=== PATIENT | female | born 1970 | race Caucasian/White ===

== ENCOUNTER → 2016-11-21 | Day surgery (SDC) | payer BC ==
[2016-11-10 09:31] VITALS: BMI 26.0
[~2016-11-21] VITALS: Ht 182.9 cm; Wt 86.4 kg
[~2016-11-21] MED LIST: BUSP-8 PO; CLB100 PO; CPR500 PO; GABA-112 PO; LIDOCAINE HCL 2% 2 ML VIAL (20MG/ML) ONE; METR-163 PO; PRLSR20 PO; PROPOFOL IV EMULSION 10 MG/ML 20 ML VIAL IV ONE; SERT-234 PO; SODIUM CHLORIDE 0.9% 500ML 500 ML IV ONE; TOPI50TA16 PO
[2016-11-21 11:54] VITALS: Ht 182.9 cm; Wt 86.4 kg
[2016-11-21 12:02] VITALS: TEMP 36.6
--- NOTE | 2016-11-21 12:17 | Endo History and Physical ---
History & Physical Date of Service: Nov 21, 2016. Chief Complaint: anal pain, fistula Referring Physician: Dr. 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 Past Surgical History Hx Cardiac Surgery: No Hx Internal Defibrillator: No Hx Pacemaker: No Hx Abdominal Surgery: No Hx of Implantable Prosthesis: No Hx Post-Op Nausea and Vomiting: Yes (NAUSEA AND VOMITING WITH GENERAL ANESTHESIA. ) Hx Cancer Surgery: No Hx Thoracic Surgery: No Hx Orthopedic: Yes (LEFT ACL REPAIR X 2, THUMB SPLINTER REMOVAL) Hx Urinary Tract Surgery: No Family History None Social History Smoking Status: Never Smoker Hx Substance Use: No Hx Alcohol Use: Yes (OCCASSIONALLY (NOT LATELY D/T ABD PAIN)) Allergies Coded Allergies: NO KNOWN DRUG ALLERGIES (Verified Allergy, Unknown, ., 11/21/16) Dairy (Verified Adverse Reaction, Intermediate, GI SYMPTOMS, 11/21/16) Current Medications Reported Home Medications Medications Dose Route/Sig Max Daily Dose Days Date Category Buspirone Hcl 10 Mg Tab 20 Mg PO 11/21/16 Reported Celebrex (Celecoxib) 100 Mg Cap 1 Cap PO QAM 30 11/10/16 Reported Neurontin (Gabapentin) 100 Mg Cap 200 Mg PO BID 11/10/16 Reported Topamax (Topiramate) 50 Mg Tab 50 Mg PO BID 11/10/16 Reported Prilosec (Omeprazole) 20 Mg Capcr 20 Mg PO QAM 05/24/13 Reported Zoloft (Sertraline HCl) 100 Mg Tab 1.5 Tab PO QPM 05/24/13 Reported Vital Signs Weight (Kilograms): 86.36 Height (Feet): 6 Height (Inches): 0 Date Time Temp Pulse Resp B/P Pulse Ox O2 Delivery O2 Flow Rate FiO2 11/21/16 12:02 36.6 56 20 128/65 100 Room Air Physical Exam General Appearance: WD/WN, no apparent distress Respiratory/Chest: Auscultation: breath sounds normal Cardiovascular: Heart Auscultation: RRR Abdomen: Bowel Sounds: normal Inspection & Palpation: soft, non-distended, no tenderness, guarding & rebound Assessment and Plan Assessment: 45 yo CF who presents for colonoscopy secondary to anal pain and 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 Plan: Proceed with colonoscopy.
--- NOTE | 2016-11-21 13:00 | Discharge Instructions ---
Endoscopy Patient Instructions Date / Procedure(s) Performed Nov 21, 2016. Colonoscopy Allergy Information Coded Allergies: NO KNOWN DRUG ALLERGIES (Verified Allergy, Unknown, ., 11/21/16) Dairy (Verified Adverse Reaction, Intermediate, GI SYMPTOMS, 11/21/16) Discharge Date / Findings Nov 21, 2016. Left sided colon biopsies Internal hemorrhoids Medication Instructions Restart Stopped Medication(s): OK to resume all medications today as prescribed. Reported Home Medications Medications Dose Route/Sig Max Daily Dose Days Date Category Buspirone Hcl 10 Mg Tab 20 Mg PO 11/21/16 Reported Celebrex (Celecoxib) 100 Mg Cap 1 Cap PO QAM 30 11/10/16 Reported Neurontin (Gabapentin) 100 Mg Cap 200 Mg PO BID 11/10/16 Reported Topamax (Topiramate) 50 Mg Tab 50 Mg PO BID 11/10/16 Reported Prilosec (Omeprazole) 20 Mg Capcr 20 Mg PO QAM 05/24/13 Reported Zoloft (Sertraline HCl) 100 Mg Tab 1.5 Tab PO QPM 05/24/13 Reported Provider Instructions Activity Restrictions - No exercising or heavy lifting for 24 hours. - Do not drink alcohol the day of the procedure. - Do not drive a car or operate machinery until the day after the procedure. - Do not make any important decisions or sign important papers in 24 hours after the procedure. Following Day: - Return to full activity which may include returning to work/school. Diet Start your diet with liquids and light foods (jello, soup, juice, toast). Then eat your usual diet if not nauseated. Treatment For Common After Affects For mild abdominal pain, bloating, or excessive gas: - Rest - Eat lightly - Lie on right side Follow-Up Information Follow-up with Dr. Messer as scheduled Anesthesia Information What You Should Know You have had a procedure that required some medicine to reduce anxiety and discomfort. This treatment is called moderate sedation. After receiving the treatment, you may be sleepy, but you will be able to breathe on your own. The effects of the treatment may last for several hours. Follow these instructions along with Activity/Diet recommendations noted above: * Do NOT do anything where dizziness or clumsiness would be dangerous. * Rest quietly at home today, then you can be up and about tomorrow. * Have a responsible person stay with you the rest of today. * You may have had an I.V. today. If so, you may take the dressing off later today. Recommendations Call your doctor if: * Trouble breathing * Continuous vomiting for more than 24 hours * Temperature above 101 degrees * Severe abdominal pain or bloating * Pain not relieved by pain medicine ordered * There is increased drainage or redness from any incision * A large amount of rectal bleeding greater than 2-3 tablespoons. (If you had a polyp/s removed or have hemorrhoids, a small amount of blood - from the rectum is to be expected.) * You have any unanswered questions or concerns. IN THE EVENT OF A SERIOUS EMERGENCY, GO TO THE NEAREST EMERGENCY ROOM Your discharge instructions were prepared by provider Guillermo Carmona. Patient Instructions Signature Page Lorenza Granda Patient (or Guardian) Signature/Date: I have read and understand the instructions given to me by my caregivers. Caregiver/RN/Doctor Signature/Date: The above-named patient and/or guardian has received patient instructions on this date. + Original Patient Signature Page (only) stays with chart. Please make copy for patient.
--- NOTE | 2016-11-21 13:03 | GI REPORT ---
Procedure Date: 11/21/2016 12:29 PM Procedure: Colonoscopy Indications: Pelvic pain, Abnormal MRI of the GI tract Medicines: Monitored Anesthesia Care Complications: No immediate complications. Estimated Blood Loss: Estimated blood loss: none. Procedure: Pre-Anesthesia Assessment: - Prior to the procedure, a History and Physical was performed, and patient medications and allergies were reviewed. The patient's tolerance of previous anesthesia was also reviewed. The risks and benefits of the procedure and the sedation options and risks were discussed with the patient. All questions were answered, and informed consent was obtained. Prior Anticoagulants: The patient has taken no previous anticoagulant or antiplatelet agents. ASA Grade Assessment: II - A patient with mild systemic disease. After reviewing the risks and benefits, the patient was deemed in satisfactory condition to undergo the procedure. After I obtained informed consent, the scope was passed under direct vision. Throughout the procedure, the patient's blood pressure, pulse, and oxygen saturations were monitored continuously. The scope was introduced through the anus and advanced to the terminal ileum. The colonoscopy was performed without difficulty. The patient tolerated the procedure well. The quality of the bowel preparation was good. The terminal ileum, ileocecal valve, appendiceal orifice, and rectum were photographed. Findings: Non-bleeding internal hemorrhoids were found during retroflexion. The hemorrhoids were small. Multiple biopsies were obtained with cold forceps for histology in a targeted manner in the sigmoid colon. Impression: - Non-bleeding internal hemorrhoids. - Multiple biopsies were obtained in the sigmoid colon. Recommendation: - Resume previous diet. - Continue present medications. - Repeat colonoscopy for surveillance based on pathology results. - Return to primary care physician as previously scheduled. Guillermo Carmona DO 11/21/2016 1:02:31 PM This report has been signed electronically. Note Initiated On: 11/21/2016 12:29 PM
[2016-11-21 13:30] VITALS: BP 117/90; PULSE 68; O2SAT 98
--- NOTE | 2016-11-21 13:39 | Anesthesiology Progress Note ---
Anesthesia Post Op Note Date & Time Nov 21, 2016 at 13:38 Vital Signs Pain Intensity: 0 Vital Signs Past 12 Hours Date Time Temp Pulse Resp B/P Pulse Ox O2 Delivery O2 Flow Rate FiO2 11/21/16 13:15 68 18 117/90 98 Room Air 11/21/16 13:01 66 16 112/66 99 Room Air 11/21/16 12:02 36.6 56 20 128/65 100 Room Air Notes Mental Status: alert / awake / arousable, participated in evaluation Pt Amnestic to Procedure: Yes Nausea / Vomiting: adequately controlled Pain: adequately controlled Airway Patency, RR, SpO2: stable & adequate BP & HR: stable & adequate Hydration State: stable & adequate Anesthetic Complications: no major complications apparent
== END | disposition home or self-care (01) ==
LOC: C.GI 11:28
PROVIDERS: ATTEND Internal Medicine
DX: K62.89 Other specified diseases of anus and rectum (principal); K60.3 Anal fistula; R10.2 Pelvic and perineal pain; R93.3 Abnormal findings on diagnostic imaging of other parts of digestive tract; K64.8 Other hemorrhoids; M19.90 Unspecified osteoarthritis, unspecified site; Z68.25 Body mass index [BMI] 25.0-25.9, adult; J45.909 Unspecified asthma, uncomplicated; F32.9 Major depressive disorder, single episode, unspecified; Z98.890 Other specified postprocedural states; R60.9 Edema, unspecified

== ENCOUNTER → 2016-12-05 | Outpatient (CLI) | payer BC ==
[~2016-12-05] MED LIST changes: -CPR500 PO; -LIDOCAINE HCL 2% 2 ML VIAL (20MG/ML) ONE; -METR-163 PO; -PROPOFOL IV EMULSION 10 MG/ML 20 ML VIAL IV ONE; -SODIUM CHLORIDE 0.9% 500ML 500 ML IV ONE
--- NOTE | 2016-12-05 08:59 | DIAGNOSTIC IMAGING REPORT ---
ABDOMEN LIMITED (US) CLINICAL HISTORY: R10.9 Abdominal [id number] Reducible bulge of abdominal wall COMPARISON STUDY: None. FINDINGS: Real-time sonographic imaging of the left abdominal wall was performed. There are no masses, fluid collections or hernia identified within the left abdominal wall IMPRESSION: No sonographic abnormality within the left abdominal wall. No evidence for hernia. Electronically signed by: Dax Caballero M.D. 12/05/2016 8:57 AM Dictated Date/Time: 12/05/2016 8:56 AM
== END | disposition home or self-care (01) ==
LOC: C.ULTR 08:31
PROVIDERS: ATTEND Registered Nurse
DX: R14.0 Abdominal distension (gaseous) (principal); R10.9 Unspecified abdominal pain; R19.00 Intra-abdominal and pelvic swelling, mass and lump, unspecified site

== ENCOUNTER → 2016-12-08 | Outpatient (CLI) | payer BC ==
[~2016-12-08] MED LIST changes: +GADAVIST IV PRN; +GLUCAGON FOR INJ 1 MG VIAL IM SCH; +GLUCAGON FOR INJ 1 MG VIAL ONE; +NURSING VERBAL MED ORDER ONE
--- NOTE | 2016-12-08 11:13 | DIAGNOSTIC IMAGING REPORT ---
MR ENTEROGRAPHY CLINICAL HISTORY: Anal fistula. COMPARISON STUDY: Abdominal ultrasound dated 12/05/2016. Pelvic MRI dated 11/03/2016. TECHNIQUE: MR enterography of the abdomen and pelvis is performed utilizing various T1 and T2-weighted sequences in the axial and coronal planes. Contrast-enhanced sequences are acquired following the IV administration of 8 mL of Gadavist. Dynamic imaging was performed on a separate [employer] workstation. Subtraction imaging was utilized. 1 mg of glucagon was given intramuscularly for the examination. FINDINGS: The small bowel and colon are normal in course and caliber. There is no bowel obstruction. There is moderate to severe colonic fecal retention. No thick walled or hyperemic small bowel loops are identified. The distal/terminal ileum are normal in appearance. There is no MRI evidence of inflammatory bowel disease. Normal small bowel peristalsis is identified on the dynamic images. There is no abdominal ascites. No lymphadenopathy is seen. The liver, gallbladder, spleen, adrenal glands, pancreas, and kidneys are grossly normal. The abdominal aorta is normal in course and caliber. The bony structures are normal as visualized. 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 No pleural effusion is identified. The bladder, uterus, and adnexa are normal as visualized. The small perianal fistula seen by MRI on 11/03/2016 is not well visualized on this examination. This study was not protocoled to assess the perianal structures. IMPRESSION: 1. Unremarkable MR enterography examination. The small bowel is normal in appearance. 2. Moderate to severe constipation. 3. Additional findings as above. Dictated: 12/08/2016 10:54 AM Transcribed: 12/08/2016 11:13 AM [place] Electronically signed by: Omero Lowe M.D. 12/08/2016 11:25 AM Dictated Date/Time: 12/08/2016 10:54 AM
== END | disposition home or self-care (01) ==
LOC: C.MRI 07:29
PROVIDERS: ATTEND Colon & Rectal Surgery
DX: K60.3 Anal fistula (principal); K59.00 Constipation, unspecified

== ENCOUNTER → 2016-12-26 | Outpatient (CLI) | payer BC ==
[~2016-12-26] VITALS: Ht 182.9 cm; Wt 90.2 kg
[~2016-12-26] MED LIST changes: -GADAVIST IV PRN; -GLUCAGON FOR INJ 1 MG VIAL IM SCH; -GLUCAGON FOR INJ 1 MG VIAL ONE; -NURSING VERBAL MED ORDER ONE
[2016-12-26 16:16] VITALS: BP 135/75; PULSE 90; Ht 182.9 cm; Wt 90.2 kg
== END | disposition home or self-care (01) ==
LOC: C.NEUR 15:23
PROVIDERS: ATTEND Internal Medicine Pulmonary Disease
DX: R06.83 Snoring (principal); R06.81 Apnea, not elsewhere classified; G47.10 Hypersomnia, unspecified

== ENCOUNTER → 2017-01-03 | Outpatient (CLI) | payer BC ==
--- NOTE | 2017-01-05 14:37 | POLYSOMNOGRAPH REPORT ---
CLINICAL DATA: A 46-year-old female with a history of witnessed apneic episodes at night. She can fall asleep very easily if she lies down at anytime. This has been present for over 20 years. She does not have excessive daytime sleepiness or significant fatigue. 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 On the evening of 01/03/2017, a home sleep apnea test was performed using a Nathan type 3 monitor. RECORDING RESULTS: Total recording time was 10 hours. The patient's estimated sleep time and the patient monitoring time was 7.4 hours. RESPIRATORY DATA: There was no evidence of clinically significant sleep apnea/hypopnea. The RDI was 0.8. There were 2 obstructive, 1 mixed, and 2 central apneic episodes. There was 1 hypopneic episode. The longest respiratory event recorded was 38 seconds. OXIMETRY DATA: No hypoxemia was seen. Oxygen aleisha was 91%. Mean saturation was 94%. Time below 89% was 0 minutes. HEART RATE DATA: Heart rates ranged from 40-53 beats per minute. SNORING DATA: Snoring was recorded throughout the night. IMPRESSION: No evidence of clinically significant sleep apnea/hypopnea or nocturnal hypoxemia to explain this patient's symptoms. RECOMMENDATIONS: The patient should continue to practice good sleep hygiene. NAYELY
== END | disposition home or self-care (01) ==
LOC: C.NEUR 08:40
PROVIDERS: ATTEND Internal Medicine Pulmonary Disease
DX: R06.83 Snoring (principal); R06.81 Apnea, not elsewhere classified

== ENCOUNTER → 2017-08-02 | Outpatient (CLI) | payer BC ==
--- NOTE | 2017-08-03 07:44 | MAMMOGRAPHY REPORT ---
BILATERAL DIGITAL SCREENING MAMMOGRAM TOMOSYNTHESIS WITH CAD: 08/02/2017 CLINICAL HISTORY: Routine screening. TECHNIQUE: Breast tomosynthesis in addition to standard 2D mammography was performed. Current study was also evaluated with a Computer Aided Detection (CAD) system. COMPARISON: Comparison is made to exams dated: 04/11/2016 mammogram, 03/18/2014 mammogram, 08/06/2013 ma mmogram, 07/23/2012 mammogram, 07/13/2011 mammogram, and 04/21/2010 mammogram - [facility]. BREAST COMPOSITION: The tissue of both breasts is heterogeneously dense, which may obscure small mas ses. FINDINGS: No suspicious masses, calcifications, or areas of architectural distortion are noted in ei ther breast. There has been no significant interval change compared to prior exams. There are stable postsurgical changes in the right lower inner quadrant from prior surgical excision. A linear scar marker denotes a scar on the right anterior breast. There is stable asymmetry with associated benign -appearing regional calcifications in the right inferior breast. A biopsy marker clip is again noted within the left upper outer quadrant. IMPRESSION: ACR BI-RADS CATEGORY 2: BENIGN There is no mammographic evidence of malignancy. A 1 year screening mammogram is recommended. The pa tient will receive written notification of the results. Approximately 10% of breast cancers are not detected with mammography. A negative mammographic report should not delay biopsy if a clinically suggestive mass is present. Laurence De Luna M.D. /:08/02/2017 16:15:36 [employer] Casting Machine Operator: Radha VALDEZ(Nena)(Sonu), [facility] letter sent: Normal 1/2 BI-RADS Code: ACR BI-RADS Category 2: Benign
== END | disposition home or self-care (01) ==
LOC: C.MAMM 11:18
PROVIDERS: ATTEND Obstetrics & Gynecology
DX: Z12.31 Encounter for screening mammogram for malignant neoplasm of breast (principal)

== ENCOUNTER → 2017-10-31 | Outpatient (CLI) | payer BC | END | disposition home or self-care (01) | LOC: C.PAPS 09:23 | PROVIDERS: ATTEND Obstetrics & Gynecology | DX: Z01.419 Encounter for gynecological examination (general) (routine) without abnormal findings (principal) ==